=== PATIENT | female | born 1995 | race Caucasian/White ===

== ENCOUNTER 2018-11-08 11:29 | Day surgery (SDC) | payer OTHER, SELFPAY ==
[2018-11-06 10:53] LABS: Hematocrit 39.9 % (37-47); Mean Corp Hgb Conc 35.1 g/gl (32-36); Mean Corpuscular Hgb 30.9 pg (27.0-32.0); Mean Corpuscular Volume 88.1 fL (81-99); Platelet Count 209 K/mm3 (150-450); RBC Distribution Width CV 12.9 % (11.6-14.6); RBC Distribution Width SD 39.8 fl (35.1-43.9); Red Blood Count 4.53 M/mm3 (4.2-5.4); White Blood Count 6.1 K/mm3 (4.4-11.0)
[2018-11-06 10:55] LABS: Scan Indicated on CBC? Y/N NO
[2018-11-06 11:02] LABS: Prothrombin Time (Protime)PT. 13.4 SECONDS (11.7-14.9)
[2018-11-06 11:03] LABS: Partial Thromboplast Time 30.6 Seconds (24.1-36.2)
[2018-11-08] VITALS (7 sets, daily range): BP systolic 102–127; BP diastolic 55–74; PULSE 53–87; RESP 18; TEMP 36.4–36.9; O2SAT 96–100; BMI 29.8
--- NOTE | 2018-11-08 | POC_PTH ---
PATIENT: JJ MORA LOC: [facility] [place]#:[id number] AGE/SX: 23/F ROOM: RE11/08/[address]: Dr. Miles Guerrero MD : [id number] BED: DIS: 11/08/2018 SPEC #: [id number] RECD: 11/08/18 15:23 STATUS: LOLA EZRA #: [id number] MOIZ: 11/08/18 00:[address]: Miles Guerrero DEPT: SURGICAL PATHOLOGY RECD BY: Sridhar Everett ENTERED: 11/08/18 15:23 SP TYPE: PROD CONC OTHR DR: BAUDILIO Shannon Tissues: Product of conception, NOS Procedures: Surgery Specimen Level IV HEADER OPERATION: Dilation and curettage, suction PRE-OP DIAGNOSIS: Missed 11 weeks TISSUE SUBMITTED: Products of conception MICROSCOPIC DIAGNOSIS Endometrium, curettage: Chorionic villi, decidualized stroma and trophoblastic cells consistent with products of conception. See comment. AM:yaz 11/09/18 COMMENT The villi contain hydropic change. Partial molar change cannot be excluded. Clinical correlation is suggested. Case has been reviewed in consultation with Dr. Masterson who concurs with the above diagnosis. IDC:CE MICROSCOPIC DESCRIPTION Slides are reviewed. GROSS DESCRIPTION Received in fixative is one container labeled with the patient's name and designated products of conception. The specimen consists of multiple irregular fragments of red-sanchez soft tissue that in aggregate measure 9 x 8 x 1 cm. parts are not grossly recognized. Equipment Validation Engineer portions are submitted in one cassette. / AM:yaz 11/08/18 TC:5 CPT: 51300
--- NOTE | 2018-11-08 12:11 | DCINST_ITS ---
You will use the following diet at home:: No restrictions, Regular Discharge Activity: Return to Normal Activity, May Drive, May not drive while taking narcotic pain medications., May Shower Return to work on:: 11/11/18 May resume sexual activity in: 3 weeks Call your doctor if your incision/area has: Sudden Increased Bleeding, Foul Smelling Discharge Call your doctor if you observe: Fever of 101 or Higher, Inability to urinate, Inability to have a bowel movement, Using more than one pad per hour, Shortness of breath, Chest pain, Calf discomfort, Uncontrolled pain Cleanse incision/area with: Soap & Water Allergies/Adverse Reactions: Allergies No Known Allergies Allergy (Verified 11/05/18 08:17) Medications to take at Discharge Ibuprofen 600 mg PO 4X/DAY #30 tab 11/08/18 Oxycodone [Oxyir] 5 mg PO Q4H PRN PRN 7 Days #10 tab 11/08/18 The following prescriptions were given: Oxycodone [Oxyir] 5 mg PO Q4H PRN PRN 7 Days #10 tab PRN Reason: Severe Pain (6-07/21) Ibuprofen 600 mg PO 4X/DAY #30 tab Primary Care Physician: Kimberley Gregg NP-C [Primary Care Provider] - Test Results: Test results from this visit will be discussed in further detail at your follow- up appointment, if applicable. Please Follow Up With: Miles Guerrero MD When: 2 weeks Proposed Discharge Date: 11/08/18
--- NOTE | 2018-11-08 12:55 | PCM.OPRPT ---
Problem List (1) Missed with demise before 20 completed weeks of gestation Status: Acute Report of Operation Date of Procedure: 11/08/18 Pre-Operative Diagnosis: Missed Ab Post-Operative Diagnosis: Same Surgery/Procedure Performed:: Suction Dilation and Curettage Description of Surgical Findings:: Uterus 8 weeks size. Normal appearing cervix. Products of conception appropriate for previous US findings. magnesium mill operator: None Type of Anesthesia:: MAC Anesthesiologist: Abhishek Leon Special Medications: none Specimen's removed: Products of Conception Drains: none Estimated Blood Loss (mL): 20cc Fluids Replaced: 500cc LR Description of Procedure: Jarrett was taken tot he OR with IV running. She was given two grams of Cefotetan prior to the surgery for prophylaxis. Anesthesia was introduced without complication. She was prepped and draped in the dorsal lithotomy position. A red rubber catheter was used to drain the bladder. A weighted speculum was placed in the posterior vagina. The cervix was grasped anteriorly with a single toothed tenaculum. The cervix was then serially dilated. A #8 suction curette was then placed and suctioned applied. The suction curette was then removed and a sharp curettage was performed to a gritty texture throughout. The suction curette was replaced and the remaining products of conception obtained. All instruments were then removed from the vagina. Anesthesia was reversed. She was taken to the recovery room in stable condition. Sponge, instrument counts were correct. She was given Rhogam prior to discharge from the recovery room. Grafts/Implants Used: none - Complications none - Admit VTE Documentation VTE Present on Admission: No VTE Mechan Device Prophylaxis: SCD's VTE Pharm Prophylaxis ordered?: No
--- NOTE | 2018-11-08 13:01 | OP.PCM_ITS ---
Problem List (1) Missed with demise before 20 completed weeks of gestation Status: Acute Report of Operation Date of Procedure: 11/08/18 Pre-Operative Diagnosis: Missed Ab Post-Operative Diagnosis: Same Surgery/Procedure Performed:: Suction Dilation and Curettage Description of Surgical Findings:: Uterus 8 weeks size. Normal appearing cervix. Products of conception appr opriate for previous US findings. service desk agent: None Type of Anesthesia:: MAC Anesthesiologist: Abhishek Leon Special Medications: none Specimen's removed: Products of Conception Drains: none Estimated Blood Loss (mL): 20cc Fluids Replaced: 500cc LR Description of Procedure: Jarrett was taken tot he OR with IV running. She was given two grams of Cefotetan prior to the surgery for prophylaxis. Anesthesia was introduced without complication. She was prepped and draped in the dorsal lithotomy position. A red rubber catheter was used to drain the bladder. A weighted speculum was placed in the posterior vagina. The cervix was grasped anteriorly with a single toothed tenaculum. The cervix was then serially dilated. A #8 suction curette was then placed and suctioned applied. The suction curette was then removed and a sharp curettage was performed to a gritty texture throughout. The suction curette was replaced and the remaining products of conception obtained. All instruments were then removed from the vagina. Anesthesia was reversed. She was taken to the recovery room in stable condition. Sponge, instrument counts were correct. She was given Rhogam prior to discharge from the recovery room. Grafts/Implants Used: none - Complications none - Admit VTE Documentation VTE Present on Admission: No VTE Mechan Device Prophylaxis: SCD's VTE Pharm Prophylaxis ordered?: No
== END 2018-11-08 16:08 | disposition home or self-care (01) ==
LOC: SDC 11:32 → AC 11:33
PROVIDERS: Family Provider Nurse Practitioner Family; PCP Nurse Practitioner Family; Referring Provider Obstetrics & Gynecology; Visit Provider Obstetrics & Gynecology
PROC: (CPT 59820; principal; 2018-11-08 12:45)
DX: O02.1 Missed abortion (principal)
CPT/HCPCS: 01965; 59820; 36415; 85027; 85610; 85730; 86850; 86900; 88305; 90384; J7120; J2405; J2790

== ENCOUNTER → 2018-11-22 10:35 | Outpatient (CLI) | payer OTHER, SELFPAY ==
[2018-11-08 11:48] VITALS: BMI 29.8
[2018-11-22 11:30] LABS: hCG Titer Quant., Serum 51 mIU/mL (<9 non-preg)
== END ==
PROVIDERS: Family Provider Nurse Practitioner Family; PCP Nurse Practitioner Family; Visit Provider Obstetrics & Gynecology
DX: O02.0 Blighted ovum and nonhydatidiform mole (principal); Z3A.00 Weeks of gestation of pregnancy not specified
CPT/HCPCS: 36415; 84702

== ENCOUNTER → 2018-11-29 10:52 | Outpatient (CLI) | payer OTHER, SELFPAY ==
[2018-11-08 11:48] VITALS: BMI 29.8
[2018-11-29 12:54] LABS: hCG Titer Quant., Serum 14 mIU/mL (<9 non-preg)
== END ==
PROVIDERS: Family Provider Nurse Practitioner Family; PCP Nurse Practitioner Family; Visit Provider Obstetrics & Gynecology
DX: O02.0 Blighted ovum and nonhydatidiform mole (principal); Z3A.00 Weeks of gestation of pregnancy not specified
CPT/HCPCS: 36415; 84702

== ENCOUNTER → 2018-12-06 11:16 | Outpatient (CLI) | payer OTHER, SELFPAY ==
[2018-11-08 11:48] VITALS: BMI 29.8
[2018-12-06 13:50] LABS: hCG Titer Quant., Serum 6 mIU/mL (<9 non-preg)
== END ==
PROVIDERS: Visit Provider Obstetrics & Gynecology
DX: O02.0 Blighted ovum and nonhydatidiform mole (principal)
CPT/HCPCS: 36415; 84702

== ENCOUNTER → 2019-11-02 17:18 | Outpatient (CLI) | payer OTHER, SELFPAY ==
[2018-11-08 11:48] VITALS: BMI 29.8
[2019-11-02 20:43] LABS: Chlamydia Trachomatis by PCR Negative (Negative); Neisserai gonorrhoeae by PCR Negative (Negative); Probe Check PASS; Sample Adequacy Control PASS; Specimen Processing Control PASS
== END ==
PROVIDERS: Visit Provider Advanced Practice Midwife
DX: Z11.3 Encounter for screening for infections with a predominantly sexual mode of transmission (principal)
CPT/HCPCS: 87491; 87591

== ENCOUNTER → 2019-11-10 15:37 | Outpatient (CLI) | payer OTHER, SELFPAY ==
[2018-11-08 11:48] VITALS: BMI 29.8
[2019-11-10 16:57] LABS: Absolute Lymphocyte Count 2.04 X10^3/uL (0.83-4.51); Absolute Neutrophil Count 8.8 X10^3/uL (2.0-7.7); Basophil# 0.03 X10^3/uL; Basophil% 0.3 % (0-1); Eosinophil# 0.08 X10^3/uL; Eosinophils% 0.7 % (0-5); Hematocrit 42.5 % (37-47); Hemoglobin 14.7 g/dL (12.0-15.0); Lymphocyte # 2.04 X10^3/ul (4.0); Lymphocyte % 17.5 % (19-41); Mean Corp Hgb Conc 34.6 g/dL (32-36); Mean Corpuscular Hgb 30.6 pg (27.0-32.0); Mean Corpuscular Volume 88.4 fL (81-99); Mean Platelet Vol. 9.8 fl (6.2-12.0); Monocyte# 0.63 X10^3/uL; Monocyte% 5.4 % (0-10); NRBC Flagged by Analyzer 0 % (0-5); Neutrophil # 8.82 X10^3/uL (2.7-7.7); Neutrophil % 75.8 % (47-70); Platelet Count 218 K/mm3 (150-450); Red Blood Count 4.81 M/mm3 (4.2-5.4); White Blood Count 11.6 K/mm3 (4.4-11.0)
[2019-11-10 17:05] LABS: Color, Urine Straw (Yellow); Glucose, Dipstick Normal (Normal); Ketone-Dipstick Negative (Negative); Leukocyte Esterase-Dipstick Negative /ul (Negative); Nitrite-Dipstick Negative (Negative); Occult Blood-Urine Negative /ul (Negative); Protein-Dipstick Negative (Negative); Urine Bilirubin Dipstick Negative (Negative); Urine Clarity Clear (Clear); Urine Urobilinogen Normal (Normal)
[2019-11-10 17:19] LABS: Amphetamine Urine VISTA NEGATIVE (<1000 ng/mL); Barbiturate Urine VISTA NEGATIVE (< 200 ng/mL); Benzodiazepine Urine VISTA NEGATIVE (< 200 ng/mL); Cocaine Urine VISTA NEGATIVE (< 300 ng/mL); Ecstacy Urine VISTA NEGATIVE (< 500 ng/mL); Methadone Urine VISTA NEGATIVE (< 300 ng/mL); PCP Urine VISTA NEGATIVE (< 25 ng/mL); THC Urine VISTA NEGATIVE (< 50 ng/mL); Vista UDS pH Range 6
[2019-11-10 17:43] LABS: Thyroid Stim Hormone (TSH) 0.92 uIU/mL (0.358-3.74)
[2019-11-11 10:32] LABS: HIV - WCH Non-Reactive (Nonreactive); Hepatitis B Surface Antigen Non-Reactive (Nonreactive); Hepatitis C Antibody Non-Reactive (Nonreactive); Rubella IgG 16.3 IU/mL
[2019-11-17 03:50] LABS: Prenatal RPR NONREACTIVE (NONREACTIVE)
== END ==
PROVIDERS: Visit Provider Obstetrics & Gynecology
DX: Z34.81 Encounter for supervision of other normal pregnancy, first trimester (principal)
CPT/HCPCS: 36415; 80307; 81002; 84443; 85025; 86703; 86762; 86803; 87340

== ENCOUNTER → 2020-03-07 09:16 | Outpatient (CLI) | payer OTHER, SELFPAY ==
[2018-11-08 11:48] VITALS: BMI 29.8
[2020-03-07 09:35] LABS: Hematocrit 34.6 % (37-47); Hemoglobin 11.6 g/dL (12.0-15.0); Mean Corp Hgb Conc 33.5 g/dL (32-36); Mean Corpuscular Hgb 31.4 pg (27.0-32.0); Mean Corpuscular Volume 93.8 fL (81-99); Mean Platelet Vol. 9.6 fl (6.2-12.0); Platelet Count 234 K/mm3 (150-450); RBC Distribution Width CV 13.1 % (11.6-14.6); RBC Distribution Width SD 44.4 fl (35.1-43.9); Red Blood Count 3.69 M/mm3 (4.2-5.4); White Blood Count 12.4 K/mm3 (4.4-11.0)
[2020-03-07 09:37] LABS: Glucose Challenge Gest 1H 50g 82 mg/dL (70-140)
== END ==
PROVIDERS: Visit Provider Obstetrics & Gynecology
DX: Z34.83 Encounter for supervision of other normal pregnancy, third trimester (principal)
CPT/HCPCS: 36415; 82950; 85027; 86850

== ENCOUNTER → 2020-04-25 11:52 | Outpatient (CLI) | payer OTHER, SELFPAY ==
[2018-11-08 11:48] VITALS: BMI 29.8
== END ==
PROVIDERS: Visit Provider Obstetrics & Gynecology
DX: Z36.85 Encounter for antenatal screening for Streptococcus B (principal)
CPT/HCPCS: 87081

== ENCOUNTER 2020-05-25 19:10 | Inpatient (IN) | payer OTHER, SELFPAY ==
[2018-11-08 11:48] VITALS: BMI 29.8
[2020-05-25] VITALS (8 sets, daily range): BP systolic 132–137; BP diastolic 67–100; PULSE 79–129; TEMP 36.5–36.6; O2SAT 98–99; BMI 42.5
[2020-05-25] MEDS: Lactated Ringers 1,000 ML 50 ML IV (19:35)
--- NOTE | 2020-05-25 19:50 | PCM.HP.OB ---
- Problem List (1) 40 weeks gestation of Status: Acute History Date of Admission: 05/25/20 Final FÁTIMA: 05/21/20 Final FÁTIMA Source: US <20 weeks Gestational age: 40 Weeks and 5 Days History of this : This is a 25 year-old, G [2], P [0], at 40 weeks gestational age. Allergies No Known Allergies Allergy (Verified 11/05/18 08:17) Home Medications: Home Medications Vits [Prenatabs FA] 1 tab PO DAILY 05/25/20 Smoking Status: Never smoker Alcohol: None Number of Fetus(es): 1 NST - FHR Rate Baby A Baseline: 135 Variability:: Moderate Accelerations:: 15 x 15 Decelerations:: None NST Reactive:: Yes FHR Category:: Category I Uterine Activity:: quiet History Past Pregnancies: Past Pregnancies PRIOR DELIVERY HISTORY DEL DATE GEST LAB WT LB WT OZ TYPE ANES LABOR TX Oct 19 8 0 0 0 Molar General No Labs: Mom's Labs & Results 05/25/20 05/25/20 05/25/20 19:35 19:35 19:35 WBC 14.0 H RBC 3.78 L Hgb 11.4 L Hct 33.9 L MCV 89.7 MCH 30.2 MCHC 33.6 RDW Std Deviation 47.5 H RDW Coeff of Adela 14.6 Plt Count 237 MPV 10.6 Immature Gran % (Auto) 0.700 Neut % (Auto) 77.7 H Lymph % (Auto) 14.2 L [place] % (Auto) 6.6 Eos % (Auto) 0.7 Baso % (Auto) 0.1 Absolute Neuts (auto) 10.9 H Absolute Lymphs (auto) 1.99 Nucleated RBC % 0 PT 11.9 INR 0.9 APTT 27.5 Creatinine Estim Creat Clear Calc Est GFR (MDRD) Af Amer Est GFR (MDRD) Non-Af Uric Acid AST ALT Blood Type O NEGATIVE Antibody Screen NEGATIVE 05/25/20 19:35 WBC RBC Hgb Hct MCV MCH MCHC RDW Std Deviation RDW Coeff of Adela Plt Count MPV Immature Gran % (Auto) Neut % (Auto) Lymph % (Auto) [place] % (Auto) Eos % (Auto) Baso % (Auto) Absolute Neuts (auto) Absolute Lymphs (auto) Nucleated RBC % PT INR APTT Creatinine 0.81 Estim Creat Clear Calc 108.97 Est GFR (MDRD) Af Amer 113 Est GFR (MDRD) Non-Af 93 Uric Acid 5.1 AST 18 ALT 19 Blood Type Antibody Screen Course Did the patient receive Yes care? Labs Blood Type: O RH: NEGATIVE RPR/VDRL/Syphilis Nonreactive Rubella status Immune HbSAg Negative Date Done: 11/10/19 Chlamydia Negative Gonorrhea Negative HIV/AIDS Non-Reactive Group B Strep: Negative Current Obstetrical History Gestational Diabetes No Incompetent Cervix No Infertility No IUGR No Macrosomia No Hypertension/Pre-eclampsia No Placenta Previa/Abruption No PTL/PROM No Uterine anomaly No Oligohydramnios No Polyhydramnios No Multiple gestation No Past Medical History Asthma Yes: exercise induced asthma Diabetes No Hypertension No Heart disease No Mitral valve prolapse No Neurologic/Seizure disorder/ No Migraines Kidney disease No Liver disease No Varicosities No Clotting disorders/Hx of DVT No Thyroid Dysfunction No Other medical diseases No Psychiatric disorders No Major trauma No Abnormal PAP smear No Sleep apnea No Mammogram in the last 2 years No Social History Marital Status: SINGLE Alleged father Khloe Atwood Hx Smoking No Smoking Status Never smoker Expected Infant Delivery Method: Spontaneous Vaginal Number of Visits: 12 Review of Systems Constitutional: Denies: Chills, Fever, Weight Change HEENT: Denies: Head Aches, Sinus Congestion, Sinus Drainage Cardiovascular: Denies: Chest Pain, Palpitations Respiratory: Denies: Cough, Shortness of breath at rest, Sputum production Gastrointestinal: Denies: Abdominal Pain, Nausea, Vomiting Genitourinary: Denies: Dysuria Musculoskeletal: Denies: Joint Pain, Joint Tenderness Skin: Denies: Rash, Wounds Neurological: Denies: Numbness, Tingling, Focal weakness Psychiatric: Reports: Anxiety. Denies: Depression, Homicidal Ideations, Suicidal Ideations Hematologic/ Lymphatic: Denies: Easy Bruising, Easy Bleeding Physical Exam Vitals: Vital Signs Temp Pulse BP Pulse Ox 98.4 F 90 135/74 H 99 05/26/20 09:56 05/26/20 09:56 05/26/20 09:56 05/26/20 09:56 General: Alert, Oriented x3, No apparent distress HEENT: Atraumatic, Normocephalic. Negative for: Thyromegaly, Lymphadenopathy Cardiovascular: Regular rate, Regular Rhythm Lungs: Clear to auscultation Abdomen: Bowel Sounds Present, Gravid Neurological: Deep Tendon Reflexes 2+/4 and Symmetrical, Neuro grossly intact MANAGER PET: Normal external genitalia. Negative for: Vulvar lesions Estimated gestational size: Appropriate for gestational size Presentation: Cephalic Cervix Dilation (cm): 1 Station: -3 Effacement (%): 20 Assessment/Plan All Active Problems Missed with demise before 20 completed weeks of gestation (Acute) 40 weeks gestation of (Acute) A/P: This is a 25 year-old, G [2], P [0], at 40 weeks gestational age. IOL for postdates with BMI >40 SVE 10/31/-3 posterior moderate NST Category I Plan Cytotec IOL Expect
[2020-05-25 19:54] LABS: Absolute Lymphocyte Count 1.99 X10^3/uL (0.83-4.51); Absolute Neutrophil Count 10.9 X10^3/uL (2.0-7.7); Basophil# 0.02 X10^3/uL; Basophil% 0.1 % (0-1); Eosinophils% 0.7 % (0-5); Hematocrit 33.9 % (37-47); Hemoglobin 11.4 g/dL (12.0-15.0); Lymphocyte # 1.99 X10^3/ul (4.0); Lymphocyte % 14.2 % (19-41); Mean Corp Hgb Conc 33.6 g/dL (32-36); Mean Corpuscular Hgb 30.2 pg (27.0-32.0); Mean Corpuscular Volume 89.7 fL (81-99); Mean Platelet Vol. 10.6 fl (6.2-12.0); Monocyte# 0.93 X10^3/uL; Monocyte% 6.6 % (0-10); NRBC Flagged by Analyzer 0 % (0-5); Neutrophil # 10.89 X10^3/uL (2.7-7.7); Neutrophil % 77.7 % (47-70); Platelet Count 237 K/mm3 (150-450); RBC Distribution Width CV 14.6 % (11.6-14.6); RBC Distribution Width SD 47.5 fl (35.1-43.9); Red Blood Count 3.78 M/mm3 (4.2-5.4)
[2020-05-25] MEDS: miSOPROStol 25 MCG TABLET VAGINAL (20:21)
[2020-05-25 20:33] LABS: International Normalized Ratio 0.9; Partial Thromboplast Time 27.5 Seconds (24.1-36.2); Prothrombin Time (Protime)PT. 11.9 SECONDS (11.7-14.9)
[2020-05-25 20:37] LABS: AST(SGOT) 18 U/L (15-37); Alanine Aminotransfer ALT/SGPT 19 U/L (13-56); Creatinine, Serum 0.81 mg/dL (0.55-1.02); EST Glomerular Filtration Rate 93 mL/min (>60); Est Glom Filt Rate - Afr Amer 113 mL/min (>60); Estimated Creatinine Clearance 108.97 ml/min; Uric Acid 5.1 mg/dL (2.6-6.0)
[2020-05-26] VITALS (56 sets, daily range): BP systolic 111–170; BP diastolic 57–93; PULSE 70–200; TEMP 36.3–37.7; O2SAT 82–100
[2020-05-26] MEDS: miSOPROStol 50 MCG TABLET VAGINAL (00:25)
[2020-05-26] MEDS: 0.9% Saline Lock 10 ML Syringe IV (04:15)
[2020-05-26] MEDS: Lactated Ringers 500 ML 999 ML IV ×2 (04:53→19:57)
--- NOTE | 2020-05-26 09:05 | PCM.PN.OB ---
Patient Problems: Active and Suspected Problems 40 weeks gestation of (Acute) Subjective: Feeling anxious and scared. Having period like cramps on and off, but denies pain. Objective: VSS. Uterine irritability. NST Category I. SVE 1.5/70/-2 soft anterior. - Physical Exam Vitals/I&O's: Vital Signs Temp Pulse BP Pulse Ox 98.4 F 90 135/74 H 99 05/26/20 09:56 05/26/20 09:56 05/26/20 09:56 05/26/20 09:56 Weight: 127.006 kg Body Mass Index (BMI) 42.5 Intake and Output for Last 24 Hours 05/24/20 05/25/20 05/26/20 23:59 23:59 23:59 Intake Total 4.17 / 4.17 1530.83 / 1530.83 Output Total 400 / 400 800 / 800 Balance -395.83 / -395.83 730.83 / 730.83 General: Alert, Oriented x3, Cooperative HEENT: Atraumatic, PERRLA, EOMI, Normocephalic Neck: Supple, No JVD, Negative Carotid Bruits Lungs: Clear to auscultation, Normal air movement Cardiovascular: Regular rate, No murmurs Abdomen: Bowel Sounds Present, Soft, Non Tender Extremities: No edema, Capillary Refill Less than 3 Seconds Skin: No rashes, No breakdown Musculoskeletal: No Tenderness to Palpation of Joints or Extremities Neurological: Cranial nerves II-XII grossly intact Psych/Mental Status: Normal Affect, Appropriate, Anxious Laboratory Results 05/25/20 19:35: WBC 14.0 H, RBC 3.78 L, Hgb 11.4 L, Hct 33.9 L, MCV 89.7, MCH 30.2, MCHC 33.6, RDW Std Deviation 47.5 H, RDW Coeff of Adela 14.6, Plt Count 237, MPV 10.6, Immature Gran % (Auto) 0.700, Neut % (Auto) 77.7 H, Lymph % (Auto) 14.2 L, [place] % (Auto) 6.6, Eos % (Auto) 0.7, Baso % (Auto) 0.1, Absolute Neuts (auto) 10.9 H, Absolute Lymphs (auto) 1.99, Nucleated RBC % 0 05/25/20 19:35: Blood Type O NEGATIVE, Antibody Screen NEGATIVE 05/25/20 19:35: PT 11.9, INR 0.9, APTT 27.5 05/25/20 19:35: Creatinine 0.81, Estim Creat Clear Calc 108.97, Est GFR (MDRD) Af Amer 113, Est GFR (MDRD) Non-Af 93, Uric Acid 5.1, AST 18, ALT 19 Current Medications Acetaminophen (Tylenol) 325 - 650 mg PO Q4H PRN PRN PRN Reason: Pain Score 1-3/10 Al Hydroxide/Mg Hydroxide (Mylanta Ii) 15 - 30 ml PO Q4H PRN PRN PRN Reason: INDIGESTION Citric Acid/Sodium Citrate (Bicitra) 30 ml PO X1 PRN PRN Reason: Section Fentanyl Citrate (Sublimaze (100mcg Ampule)) 25 - 50 mcg IV Q2H PRN PRN PRN Reason: Pain Score 4-10/10 Lactated Ringer's () 500 mls @ 999 mls/hr IV .Q31M PRN PRN Reason: Epidural Lactated Ringer's () 500 mls @ 999 mls/hr IV .Q31M PRN PRN Reason: Corrective Measures Last Infusion: 05/26/20 05:24 Dose: Infused Documented by: Lactated Ringer's () 1,000 mls @ 50 mls/hr IV .Q20H [facility] Last Infusion: 05/26/20 05:24 Dose: 50 mls/hr Documented by: Oxytocin/Sodium Chloride () 30 units in 500 mls @ 2 mls/hr IV .Q250H [facility] Last Admin: 05/26/20 09:59 Dose: 2 mls/hr Documented by: Ondansetron HCl (Zofran) 4 mg IV Q4H PRN PRN PRN Reason: NAUSEA Prochlorperazine Edisylate (Compazine Iv) 10 mg IV Q6H PRN PRN PRN Reason: NAUSEA Sodium Chloride () 10 - 40 ml IV X1 PRN PRN Reason: SALINE FLUSH Last Admin: 05/26/20 04:15 Dose: 10 ml Documented by: Medical Necessity - Tobacco Use Smoking Status: Never smoker Assessment/Plan All Active Problems Missed with demise before 20 completed weeks of gestation (Acute) 40 weeks gestation of (Acute) A/P: 0630 Cytotec held d/t low intensity, high frequency contraction pattern SVE 1.5/70/-2 soft anterior Unable to AROM d/t maternal discomfort and anxiety Pitocin to start at 2u, to be increased 2u/1H Will recheck SVE within 4 hours to AROM Unsure on pain management, educated on IV Fentanyl and Epidural Plans in place for a
[2020-05-26] MEDS: Oxytocin 30 units/NS 500 ml 30 UNITS/500 ML IV.SOLN IV (09:59)
--- NOTE | 2020-05-26 15:40 | PCM.PN.OB ---
Patient Problems: Active and Suspected Problems 40 weeks gestation of (Acute) Subjective: Reporting mild cramping on and off. Still having pain in the hips and back, but wants to take a warm shower. Objective: VSS. SVE 1.5/75/-1 per golf player assistant. Ultrasound done to confirm cephalic presentation. UC 1-5m irregular. FHR baseline 120, +accels, -decels, moderate variability. - Physical Exam Vitals/I&O's: Vital Signs Temp Pulse BP Pulse Ox 98.7 F 97 130/60 H 100 05/26/20 20:54 05/26/20 21:44 05/26/20 21:44 05/26/20 21:44 Weight: 127.006 kg Body Mass Index (BMI) 42.5 Intake and Output for Last 24 Hours 05/24/20 05/25/20 05/26/20 23:59 23:59 23:59 Intake Total 4.17 / 4.17 3296.69 / 3296.69 Output Total 400 / 400 1400 / 1400 Balance -395.83 / -395.83 1896.69 / 1896.69 General: Alert, Oriented x3, Cooperative HEENT: Atraumatic, PERRLA, EOMI, Normocephalic Neck: Supple, No JVD, Negative Carotid Bruits Lungs: Clear to auscultation, Normal air movement Cardiovascular: Regular rate, No murmurs Abdomen: Bowel Sounds Present, Soft, Non Tender Extremities: No edema, Capillary Refill Less than 3 Seconds Skin: No rashes, No breakdown Musculoskeletal: No Tenderness to Palpation of Joints or Extremities Neurological: Cranial nerves II-XII grossly intact Psych/Mental Status: Normal Affect, Appropriate Current Medications Acetaminophen (Tylenol) 325 - 650 mg PO Q4H PRN PRN PRN Reason: Pain Score 1-3/10 Al Hydroxide/Mg Hydroxide (Mylanta Ii) 15 - 30 ml PO Q4H PRN PRN PRN Reason: INDIGESTION Citric Acid/Sodium Citrate (Bicitra) 30 ml PO X1 PRN PRN Reason: Section Ephedrine Sulfate () 10 mg IV Q10M PRN PRN Reason: hypotension Ephedrine Sulfate () 10 mg IM Q30M PRN PRN Reason: hypotension Fentanyl Citrate (Sublimaze (100mcg Ampule)) 25 - 50 mcg IV Q2H PRN PRN PRN Reason: Pain Score 4-10/10 Fentanyl/Bupivacaine/Sodium Chlor () 0 ml EPIDURAL UD [facility]; Protocol Lactated Ringer's () 500 mls @ 999 mls/hr IV .Q31M PRN PRN Reason: Epidural Last Infusion: 05/26/20 20:28 Dose: Infused Documented by: Lactated Ringer's () 500 mls @ 999 mls/hr IV .Q31M PRN PRN Reason: Corrective Measures Last Infusion: 05/26/20 05:24 Dose: Infused Documented by: Lactated Ringer's () 1,000 mls @ 50 mls/hr IV .Q20H [facility] Last Infusion: 05/26/20 20:28 Dose: 200 mls/hr Documented by: Oxytocin/Sodium Chloride () 30 units in 500 mls @ 2 mls/hr IV .Q250H [facility] Last Infusion: 05/26/20 17:30 Dose: 12 mls/hr Documented by: Naloxone HCl 4 mg/ Dextrose 504 mls @ 0 mls/hr IV .Q0M PRN; Protocol PRN Reason: To maintain Resp. rate >10 Nalbuphine HCl (Nubain) 5 mg IV Q3H PRN PRN PRN Reason: ITCHING Naloxone HCl (Narcan) 0.02 mg IV Q1M PRN PRN Reason: RR< 10 AND PT UNRESPONSIVE Ondansetron HCl (Zofran) 4 mg IV Q4H PRN PRN PRN Reason: NAUSEA Prochlorperazine Edisylate (Compazine Iv) 10 mg IV Q6H PRN PRN PRN Reason: NAUSEA Sodium Chloride () 10 - 40 ml IV X1 PRN PRN Reason: SALINE FLUSH Last Admin: 05/26/20 04:15 Dose: 10 ml Documented by: Medical Necessity - Tobacco Use Smoking Status: Never smoker Assessment/Plan All Active Problems Missed with demise before 20 completed weeks of gestation (Acute) 40 weeks gestation of (Acute) A/P: US confirms cephalic presentation SVE slightly changed at 1.5/75/-1 Wants to shower for pain management Epidural education given for relaxation to let hips relax Will discuss POC with attending Dr. Goncalves
[2020-05-26] MEDS: fentaNYL-bupivacaine (epidural) 100 ML BAG EPIDURAL (21:24)
--- NOTE | 2020-05-26 21:45 | PCM.PN.OB ---
Patient Problems: Active and Suspected Problems 40 weeks gestation of (Acute) Subjective: Comfortable with epidural now, but very shaky and nervous. Objective: VSS. SVE unchanged at 1.5/75/-1. AROM with light meconium stained fluid. Unable to trace UC, but palpating mild Q1-4m. NST Category I with FHR baseline 130, +accels, -decels, moderate variability. - Physical Exam Vitals/I&O's: Vital Signs Temp Pulse BP Pulse Ox 98.7 F 97 130/60 H 100 05/26/20 20:54 05/26/20 21:44 05/26/20 21:44 05/26/20 21:44 Weight: 127.006 kg Body Mass Index (BMI) 42.5 Intake and Output for Last 24 Hours 05/24/20 05/25/20 05/26/20 23:59 23:59 23:59 Intake Total 4.17 / 4.17 3296.69 / 3296.69 Output Total 400 / 400 1400 / 1400 Balance -395.83 / -395.83 1896.69 / 1896.69 General: Alert, Oriented x3, Cooperative HEENT: Atraumatic, PERRLA, EOMI, Normocephalic Neck: Supple, No JVD, Negative Carotid Bruits Lungs: Clear to auscultation, Normal air movement Cardiovascular: Regular rate, No murmurs Abdomen: Bowel Sounds Present, Soft, Non Tender Extremities: No edema, Capillary Refill Less than 3 Seconds Skin: No rashes, No breakdown Musculoskeletal: No Tenderness to Palpation of Joints or Extremities Neurological: Cranial nerves II-XII grossly intact Psych/Mental Status: Normal Affect, Appropriate, Anxious Current Medications Acetaminophen (Tylenol) 325 - 650 mg PO Q4H PRN PRN PRN Reason: Pain Score 1-3/10 Al Hydroxide/Mg Hydroxide (Mylanta Ii) 15 - 30 ml PO Q4H PRN PRN PRN Reason: INDIGESTION Citric Acid/Sodium Citrate (Bicitra) 30 ml PO X1 PRN PRN Reason: Section Ephedrine Sulfate () 10 mg IV Q10M PRN PRN Reason: hypotension Ephedrine Sulfate () 10 mg IM Q30M PRN PRN Reason: hypotension Fentanyl Citrate (Sublimaze (100mcg Ampule)) 25 - 50 mcg IV Q2H PRN PRN PRN Reason: Pain Score 4-10/10 Fentanyl/Bupivacaine/Sodium Chlor () 0 ml EPIDURAL UD [facility]; Protocol Lactated Ringer's () 500 mls @ 999 mls/hr IV .Q31M PRN PRN Reason: Epidural Last Infusion: 05/26/20 20:28 Dose: Infused Documented by: Lactated Ringer's () 500 mls @ 999 mls/hr IV .Q31M PRN PRN Reason: Corrective Measures Last Infusion: 05/26/20 05:24 Dose: Infused Documented by: Lactated Ringer's () 1,000 mls @ 50 mls/hr IV .Q20H [facility] Last Infusion: 05/26/20 20:28 Dose: 200 mls/hr Documented by: Oxytocin/Sodium Chloride () 30 units in 500 mls @ 2 mls/hr IV .Q250H [facility] Last Infusion: 05/26/20 17:30 Dose: 12 mls/hr Documented by: Naloxone HCl 4 mg/ Dextrose 504 mls @ 0 mls/hr IV .Q0M PRN; Protocol PRN Reason: To maintain Resp. rate >10 Nalbuphine HCl (Nubain) 5 mg IV Q3H PRN PRN PRN Reason: ITCHING Naloxone HCl (Narcan) 0.02 mg IV Q1M PRN PRN Reason: RR< 10 AND PT UNRESPONSIVE Ondansetron HCl (Zofran) 4 mg IV Q4H PRN PRN PRN Reason: NAUSEA Prochlorperazine Edisylate (Compazine Iv) 10 mg IV Q6H PRN PRN PRN Reason: NAUSEA Sodium Chloride () 10 - 40 ml IV X1 PRN PRN Reason: SALINE FLUSH Last Admin: 05/26/20 04:15 Dose: 10 ml Documented by: Medical Necessity - Tobacco Use Smoking Status: Never smoker Assessment/Plan All Active Problems Missed with demise before 20 completed weeks of gestation (Acute) 40 weeks gestation of (Acute) A/P: SVE unchanged 1.5/75/-1, but able to AROM with light meconium stained fluid UC 1.5-4m NST Category I Epidural in place for pain management Plan to recheck SVE in 4 hours. If cervical change to place internal monitors. If no cervical change, to turn off Pitocin x 4 hours and then restart. Dr. Goncalves updated on POC
[2020-05-26] MEDS: Lactated Ringers 1,000 ML 200 ML IV (22:07)
[2020-05-27] VITALS (62 sets, daily range): BP systolic 109–149; BP diastolic 55–89; PULSE 75–202; RESP 18; TEMP 36.7–37.8; O2SAT 83–100
[2020-05-27] MEDS: Lactated Ringers 500 ML 999 ML IV ×2 (01:40→04:03)
[2020-05-27] MEDS: fentaNYL-bupivacaine (epidural) 100 ML BAG EPIDURAL ×2 (02:40→09:23)
[2020-05-27] MEDS: Lactated Ringers 1,000 ML 200 ML IV (02:40)
[2020-05-27] MEDS: Ondansetron 4 MG/2 ML Vial IV (04:11)
[2020-05-27] MEDS: Oxytocin 30 units/NS 500 ml 30 UNITS/500 ML IV.SOLN 334 UNITS IV (07:55)
--- NOTE | 2020-05-27 09:19 | PCM.OPRPT ---
Problem List (1) 40 weeks gestation of Status: Acute Vaginal Delivery Maternal Presentation: Medically Indicated Induction Method of Induction: Cytotec Medical Reason for Induction: Post term Amniotic Membrane Rupture Type: Artificial Amniotic Fluid Description: Moderate meconium Final FÁTIMA: 05/21/20 Final FÁTIMA Source: US <20 weeks Gestational age: 40 Weeks and 6 Days doctor who attended delivery (if requested by OB): Minh Tucker Date of Procedure: 05/27/20 Pre-Operative Diagnosis: IOL Post-Operative Diagnosis: Surgery/ Procedure Performed: Spontaneous Vaginal Delivery Anesthesiologist: Barrett Kwong Type of Anesthesia: Epidural Description of Procedure: Patient was FD at +3 station with spontaneous urge to push. She pushed well over three hours to deliver head in OA to CAMRYN followed spontaneously by body. The was placed on the maternal abdomen and CNM bulb suctioned mouth and nares. he cord was doubly clamped and cut by FOB under CNM supervision at approximately 3 minutes of life. IV Pitocin started per protocol. With gentle traction the placenta remained attached in uterus. Call to Dr. Goncalves and able to allow 2 hours to spontaneously deliver. 2nd degree perineal laceration noted and repaired under epidural anesthesia and 1% local Lidocaine with a 3.0 rapide/double. Apgars 8/9. Sponge and needle counts correct x 2. After two hours, Dr. Goncalves called when placenta fragments started to deliver. With manual exploration, placenta attached at [address] Goncalves to come in to assess. Presentation: Vertex, CAMRYN Placental Delivery Description: Retained - Dr. Goncalves in for removal after 2 hours Cord Vessel Description: 3 Vessels Cord Entanglement: None Drain: Jeronimo to straight drain A gender: Female (1 minute): 8 (5 minute): 9 Episiotomy Description: None Laceration: Perineal Extension/lac, 2nd degree Medications given after delivery: IV Pitocin
--- NOTE | 2020-05-27 09:30 | DCINST_ITS ---
Discharge Diet: No Restrictions Discharge Activity: Return to Normal Activity, May not drive while taking narcotic pain medications., May Shower May resume sexual activity in: 4-6 weeks Additional Activity Instructions:: Nothing in the vagina for 4-6 weeks. You may return to work/school in 6 weeks. Call your doctor if your incision/area has: Continuous Slow Oozing, Sudden Increased Bleeding, Increased Pain/ Swelling, Increased Redness, Foul Smelling Discharge Additional Instructions: If you experience any of the following, contact your healthcare provider. * Bleeding that soaks a pad every hour for 2 hours * Fever 100.4 or higher * Unrelieved incision or abdominal pain * Swelling, redness, discharge or bleeding from your incision or episiotomy site * Your incision begins to separate * Problems urinating (including inability to urinate or burning while urinating). * Visual changes * Severe headache * Flu-like symptoms * Pain or redness in one of both of your breasts * Pain, warmth, tenderness or swelling in your legs, especially the calf area * Frequent nausea and vomiting * Symptoms of depression or anxiety If you experience any of the following, call 911 or go to the nearest Emergency Room. * Chest pain * Problems breathing * Seizure activity * Partial or complete paralysis of a body part, slurred speech, weakness or drooping of the face, or a sudden inability to walk or hold your balance Allergies/Adverse Reactions: Allergies No Known Allergies Allergy (Verified 11/05/18 08:17) Medications to take at Discharge Vits [Prenatabs FA] 1 tab PO DAILY 05/25/20 Please Follow Up With: Fiona Joseph CNM When: Call to make an appointment with your CNM in 2 weeks for a telehealth appt and a 6 week regular appt. Primary Care Physician: Kimberley Gregg NP-C [Primary Care Provider] - Test Results: Test results from this visit will be discussed in further detail at your follow- up appointment, if applicable.
[2020-05-27] MEDS: Methylergonovine 0.2 MG/ML Ampul IM (09:48)
--- NOTE | 2020-05-27 09:54 | OP.PCM_ITS ---
Report of Operation Date of Procedure: 05/27/20 Pre-Operative Diagnosis: Retained Placenta Status Post Spontaneous Vaginal Delivery Post-Operative Diagnosis: Retained Placenta Status Post Spontaneous Vaginal Delivery Surgery/Procedure Performed:: Extraction of Retained Placenta Description of Surgical Findings:: Adherent meconium stained placenta Type of Anesthesia:: Epidural Drains: Jeronimo to straight drain Estimated Blood Loss (mL): 450 cc Description of Procedure: Surgeon: Darren Goncalves MD, FACOG Baby delivered per bunk assembler approximately 3 hours ago and placenta has remained in place. Some large clots noted so I was called for extraction of the placenta. Upon entering the delivery room suite the patient was noted to be the dorsolithotomy position. Minimal vaginal bleeding was noted. Traction on the umbilical cord for approximately 20 to 30 minutes eventually allowed delivery of the adherent placenta. Ultrasound of the uterus after placental delivery revealed the placenta to be completely removed and examination of the placenta showed no evidence of remaining placental in the uterus. Patient had rather brisk bleeding after placental delivery so she was given IM Methergine followed by a bolus of Pitocin. No active bleeding noted after the Methergine. We will continue to monitor and give an extra bag of Pitocin over the next several hours. EBL 450 cc total for delivery and placental removal. - Complications Adherent Placenta
[2020-05-27] MEDS: Oxytocin 30 units/NS 500 ml 30 UNITS/500 ML IV.SOLN 167 UNITS IV (10:07)
[2020-05-27] MEDS: 0.9% Saline Lock 10 ML Syringe IV (13:41)
--- NOTE | 2020-05-27 15:52 | NURSING ---
pt states her legs still feel numb- pt not yet ready to walk
[2020-05-27] MEDS: Ibuprofen 600 MG Tablet PO (17:28)
--- NOTE | 2020-05-27 17:51 | NURSING ---
1630 pt up oob up to br; pt unable to void; pt gait slow but steady; bed changed; pericare demonstrated
[2020-05-28] VITALS (8 sets, daily range): BP systolic 129–134; BP diastolic 63–82; PULSE 107–110; RESP 16–18; TEMP 36.6–36.7; O2SAT 98–99
--- NOTE | 2020-05-28 08:50 | PCM.PN.OB ---
Patient Problems: Active and Suspected Problems 40 weeks gestation of (Acute) Subjective: Doing well and was able to rest overnight. Is with shield and wants to work with today before discharge. Denies pain or heavy bleeding. Ambulating in room, tolerating a regular diet, urinating well and passing flatus. Objective: VSS with BPs WNL. Fundus is firm, midline, u/1. Lochia rubra moderate. - Physical Exam Vitals/I&O's: Vital Signs Temp Pulse Resp BP Pulse Ox 97.9 F 110 H 16 131/66 H 98 05/28/20 04:05 05/28/20 04:05 05/28/20 04:05 05/28/20 04:05 05/28/20 00:04 Oxygen Delivery Method Room Air Weight: 127.006 kg Body Mass Index (BMI) 42.5 Intake and Output for Last 24 Hours 05/26/20 05/27/20 05/28/20 23:59 23:59 23:59 Intake Total 3786.19 / 3786.19 4907.70 / 4907.70 Output Total 1400 / 1400 1600 / 1600 Balance 2386.19 / 2386.19 3307.70 / 3307.70 General: Alert, Oriented x3, Cooperative HEENT: Atraumatic, PERRLA, EOMI, Normocephalic Neck: Supple, No JVD, Negative Carotid Bruits Lungs: Clear to auscultation, Normal air movement Cardiovascular: Regular rate, No murmurs Abdomen: Bowel Sounds Present, Soft, Non Tender Extremities: No edema, Capillary Refill Less than 3 Seconds Skin: No rashes, No breakdown Musculoskeletal: No Tenderness to Palpation of Joints or Extremities Neurological: Cranial nerves II-XII grossly intact Psych/Mental Status: Normal Affect, Appropriate Laboratory Results 05/27/20 11:15: Screen NEGATIVE, Baby's Blood Type O POSITIVE, Baby's CUCA NEGATIVE Current Medications Acetaminophen (Tylenol) 1,000 mg PO Q8H PRN PRN PRN Reason: Pain Score 1-3/10 Bisacodyl (Dulcolax) 10 mg RECTAL UD PRN PRN Reason: If no BM Hydrocortisone (Hytone) 1 applic TOPICAL TID PRN PRN; Protocol PRN Reason: Discomfort Ibuprofen (Motrin) 600 mg PO Q6H PRN PRN PRN Reason: Pain Score 1-3/10 Last Admin: 05/27/20 17:28 Dose: 600 mg Documented by: Methylergonovine Maleate (Methergine) 0.2 mg IM X1 PRN PRN Reason: Excess bleeding/uterine atony Last Admin: 05/27/20 09:48 Dose: 0.2 mg Documented by: Ondansetron HCl (Zofran) 4 mg IV Q4H PRN PRN PRN Reason: Nausea Senna/Docusate Sodium (Senokot-S, Delmy-Colace) 1 - 2 tablet PO DAILY PRN PRN PRN Reason: Constipation Simethicone (Mylicon) 80 mg PO PCHS PRN PRN Reason: Indigestion/Stomach pain Sodium Chloride () 5 - 15 ml IV UD PRN PRN Reason: SALINE FLUSH Last Admin: 05/27/20 13:41 Dose: 10 ml Documented by: Throat Lozenges (Dermoplast (Sp)) 1 applic TOPICAL 4X/DAY CHELLE; Protocol Last Admin: 05/27/20 22:04 Dose: 1 applic Documented by: Medical Necessity - Tobacco Use Smoking Status: Never smoker Assessment/Plan All Active Problems Missed with demise before 20 completed weeks of gestation (Acute) 40 weeks gestation of (Acute) A/P: S/P day #1 mother, will work with before discharge Normal involution and lochia Dyad stable Would like to discharge home today Education on , lochia, signs of PPD and when to call Will f/u with parts data writer in 2 weeks for a telehealth visit and in 6 weeks for routine PP visit
== END 2020-05-28 16:00 | disposition home or self-care (01) | DRG 806 ==
PROVIDERS: Admitting Provider Obstetrics & Gynecology; PCP Nurse Practitioner Family; Referring Provider Obstetrics & Gynecology; Visit Provider Obstetrics & Gynecology
DX: O48.0 Post-term pregnancy (principal); O72.0 Third-stage hemorrhage; O70.1 Second degree perineal laceration during delivery; O77.0 Labor and delivery complicated by meconium in amniotic fluid; O99.52 Diseases of the respiratory system complicating childbirth; J45.909 Unspecified asthma, uncomplicated; Z3A.40 40 weeks gestation of pregnancy; Z37.0 Single live birth
CPT/HCPCS: 59025; 59050; 82565; 84450; 84460; 84550; 85025; 85461; 85610; 85730; 86850; 86900; 86901; 90384; 99218; J7120; A4216; G0378; J2405; J2790

== ENCOUNTER → 2020-07-18 | Outpatient (CLI) | payer OTHER, SELFPAY ==
[2020-05-25 19:26] VITALS: BMI 42.5
[2020-07-20 20:07] LABS: Age Gdln ACOG Testing 21-29 (.)
[2020-07-20 20:35] LABS: HPV Reflexed? NOT INDICATED
== END | disposition home or self-care (01) ==
LOC: LABSPEC 10:02
PROVIDERS: PCP Nurse Practitioner Family; Visit Provider Obstetrics & Gynecology
DX: Z12.4 Encounter for screening for malignant neoplasm of cervix (principal)
CPT/HCPCS: 88175; G0145

== ENCOUNTER → 2021-03-22 | Outpatient (CLI) | payer OTHER, SELFPAY ==
[2020-05-25 19:26] VITALS: BMI 42.5
[2021-03-25 20:07] LABS: Chlamydia By Nucleic Acid AMP Negative (Negative)
[2021-03-25 20:59] LABS: Gonococcus By Nucleic Acid AMP Negative (Negative)
== END | disposition home or self-care (01) ==
LOC: LABSPEC 15:10
PROVIDERS: PCP Nurse Practitioner Family; Visit Provider Obstetrics & Gynecology
DX: Z11.3 Encounter for screening for infections with a predominantly sexual mode of transmission (principal)
CPT/HCPCS: 87491; 87591

== ENCOUNTER → 2021-08-13 | Outpatient (CLI) | payer OTHER, SELFPAY | END | disposition home or self-care (01) | LOC: LABSPEC 08-14 09:24 | PROVIDERS: PCP Nurse Practitioner Family; Visit Provider Obstetrics & Gynecology | DX: Z12.4 Encounter for screening for malignant neoplasm of cervix (principal) | CPT/HCPCS: 88175; G0145 ==

== ENCOUNTER 2021-11-28 14:03 | Outpatient (CLI) | payer OTHER, SELFPAY ==
--- NOTE | 2021-11-28 | CER_PTH ---
PATIENT: JJ MORA [facility] U#:[id number] AGE/SX: 26/F ROOM: RE11/28/[address]: Dr. Darren Goncalvse MD : 1995 BED: DIS: 11/28/2021 SPEC #: [id number] RECD: 11/28/21 15:11 STATUS: LOLA EZRA #: [id number] MOIZ: 11/28/21 00:[address]: Darren Goncalves DEPT: SURGICAL PATHOLOGY RECD BY: Kwesi Guerrero ENTERED: 11/29/21 09:37 SP TYPE: CERV OTHR DR: Kimberley Gregg, HERLINDA-C Tissues: A - Uterine cervix, NOS B - Endocervical Procedures: Surgery Specimen Level IV HEADER OPERATION: Colposcopy PRE-OP DIAGNOSIS: K87.612, N87.0 TISSUE SUBMITTED: A ? Four quadrant cervical biopsy, B - ECC MICROSCOPIC DIAGNOSIS A. Cervix, four-quadrant biopsy: Focal changes consistent with HPV cytopathic effects. Chronic inflammation and squamous metaplasia. See comment. B. ECC: Scant fragments of squamous epithelium with focal minimal changes suspicious for HPV cytopathic effects. Fragments of benign endocervical mucosa with chronic inflammation. See comment. GABRIELA:yaz 12/02/2021 COMMENT A & B. Results from immunohistochemistry ([id number]) for surrogate HPV marker (p16) will be reported separately. MICROSCOPIC DESCRIPTION Slides are reviewed. GROSS DESCRIPTION A - Received in fixative is one container labeled with the patient's name and designated four-quadrant biopsy. The specimen consists of multiple irregular fragments of sanchez soft tissue mixed with mucoid tissue that in aggregate measure 1 x 1 x 0.1 cm. The specimen is totally submitted in one cassette. B - Received in fixative is one container labeled with the patient's name and designated ECC. The specimen consists of multiple fragments of hemorrhagic soft tissue that in aggregate measure 1.5 x 1 x 0.1 cm. The specimen is totally submitted in one cassette. / GABRIELA:yaz 11/29/2021 TC:5 CPT: 67578 x2
--- NOTE | 2021-11-28 | IMM_PTH ---
PATIENT: JJ MORA LOC: [facility] U#:[id number] AGE/SX: 26/F ROOM: RE11/28/[address]: Dr. Darren Goncalves MD : 1995 BED: DIS: 11/28/2021 SPEC #: [id number] RECD: 12/03/21 07:31 STATUS: LOLA REXavier #: [id number] MOIZ: 11/28/21 00:[address]: Darren Goncalves DEPT: IMMUNOHISTOCHEMISTRY RECD BY: Estrella Sagastume ENTERED: 12/03/21 07:31 SP TYPE: IMMUNO OTHR DR: Kimberley Gregg, BAUDILIO Tissues: A - Uterine cervix, NOS B - Endocervical Procedures: p16 (initial) KI-67 (add) PHYSICIAN & INSTITUTION [place] [id number] SPECIMEN INFORMATION: Tissue Source: A ? Four quadrant cervical biopsy, B - ECC Clinical Info: K87.612, N87.0 Specimen Number: [id number] A & B CPT code: 88255 x2, 31801 x2 METHODOLOGY: Deparaffinized sections of prefer/formalin-fixed tissue or PAP/DQ stained slides are incubated with monoclonal/polyclonal antibodies/oligonucleotide probes. Localization is made via biotin free immunoperoxidase method. Appropriate controls are performed and reacted as expected. Results on target cell population are indicated in the following table: RESULTS: ANTIBODY / CLONE RESULT Block A P16 (E6H4) positive, focal and patchy Ki-67 (30-9) positive, low Block B P16 (E6H4) negative Ki-67 (30-9) negative These tests were developed and their performance characteristics determined by [facility]. They may not have been cleared or approved by the U.S. Food and Drug Administration. The FDA has determined that such clearance or approval is not necessary. The above immunohistochemical/dualISH markers are ordered and reviewed by the Pathologist. INTERPRETATION: A. Four quadrant cervical biopsy: Focal changes consistent with HPV cytopathic effects. B. ECC: Focal minimal changes suspicious for HPV cytopathic effects. GABRIELA:yaz 12/03/2021
== END 2021-11-28 23:59 | disposition home or self-care (01) ==
LOC: LABSPEC 14:04
PROVIDERS: PCP Nurse Practitioner Family; Visit Provider Obstetrics & Gynecology
DX: N87.0 Mild cervical dysplasia (principal)
CPT/HCPCS: 88305; 88341; 88342

== ENCOUNTER 2024-04-23 12:00 | Outpatient (CLI) | payer OTHER, SELFPAY ==
[2024-04-23 12:13] VITALS: PULSE 77; RESP 16; TEMP 36.2; O2SAT 97
[2024-04-23 12:14] VITALS: BP 133/60; PULSE 74
[2024-04-23 12:15] VITALS: BMI 42.1
--- NOTE | 2024-04-23 15:24 | OB.TRI.NOTE ---
HPI - General HPI Narrative JJ MORA, is a 29 F 29w1d presnts for fall at home in bathtub. Fell and landed on her right side. Discomfort but no pain, vaginal bleeding, or leakage of fluid. No direct abdominal trauma PFSH PFSH Home Medications ?Medication ?Instructions ?Recorded ?Last Taken ?Type vits,calcium no.78-iron 1 tab PO DAILY 05/25/20 04/23/24 08:00 History fumarate-folic acid 29 mg-1 mg 1 TAB tablet Allergy/AdvReac Type Severity Reaction Status Date / Time No Known Allergies Allergy Verified 04/23/24 12:15 Social History Smoking Status: Never smoker History Elective abortions Hx Para 0 Spontaneous abortions Hx # Term Pregnancies Ectopic pregnancies Hx # Pregnancies Multiple births # of living children NST FHR Rate Baby A Baseline: 145 Variability:: Moderate Accelerations:: 15 x 15 Decelerations:: None NST Reactive:: Yes Uterine Activity:: None Assessment & Plan (1) 29 weeks gestation of : (2) Fall: PLAN: Plan 1) 4hrs of monitoring and reactive NST 2) No pain, contractions, vaginal bleeding or leakage of fluid 3) O negative, rhogam given at 28weeks in office 4) D/C home, kick counts
== END 2024-04-23 16:18 | disposition home or self-care (01) ==
LOC: WPOUT 12:07 → WP 12:08
PROVIDERS: PCP Nurse Practitioner Family; Visit Provider Advanced Practice Midwife
DX: Z04.3 Encounter for examination and observation following other accident (principal); W18.2XXA Fall in (into) shower or empty bathtub, initial encounter; Y92.002 Bathroom of unspecified non-institutional (private) residence as the place of occurrence of the external cause; Z3A.29 29 weeks gestation of pregnancy
CPT/HCPCS: 59025; 59050; 99221; G0378

== ENCOUNTER 2024-06-04 11:40 | Outpatient (CLI) | payer OTHER, SELFPAY ==
[2024-06-04 11:56] VITALS: BP 133/64; PULSE 70
[2024-06-04 12:00] VITALS: RESP 16
[2024-06-04 12:26] LABS: ROM Internal Control Test YES-OK TO RESULT pt. (Internal QC)
[2024-06-04 12:27] LABS: ROM Patient Test Negative (Negative); Record Kit Lot#, ROM+ K1866
--- NOTE | 2024-06-04 12:30 | OB.TRI.NOTE ---
HPI - General General Date of Admission: 06/04/24 Date of Service: 06/04/24 Chief Complaint: leaking fluid HPI Narrative JJ MORA, is a 29 F who presents Stood up last night and felt a gush of fluid last night. No bleeding. No leaking since. No contractions Maternal Data Information Final FÁTIMA: 07/08/24 Gestational age: 35+1 PFSH PFSH Home Medications ?Medication ?Instructions ?Recorded ?Last Taken ?Type vits,calcium no.78-iron 1 tab PO DAILY 05/25/20 04/23/24 08:00 History fumarate-folic acid 29 mg-1 mg 1 TAB tablet aspirin 81 mg tablet,delayed 81 mg PO DAILY 06/04/24 Unknown History release (Adult Aspirin Regimen) Allergy/AdvReac Type Severity Reaction Status Date / Time No Known Allergies Allergy Verified 06/04/24 12:00 Social History Smoking Status: Never smoker History Elective abortions Hx Para 0 Spontaneous abortions Hx # Term Pregnancies Ectopic pregnancies Hx # Pregnancies Multiple births # of living children NST FHR Rate Baby A Baseline: 140 Variability:: Moderate Accelerations:: 15 x 15 Decelerations:: None NST Reactive:: Yes FHR Category:: Category I Uterine Activity:: none Assessment & Plan (1) 35 weeks gestation of : (2) Encounter for suspected premature rupture of membranes, with rupture of membranes not found: PLAN: Plan ROM negative Cat I tracing. Follow up as scheduled
[2024-06-04 12:38] VITALS: BMI 43.4
== END 2024-06-04 12:35 | disposition home or self-care (01) ==
LOC: WPOUT 11:43 → WP 11:45
PROVIDERS: PCP Nurse Practitioner Family; Referring Provider Obstetrics & Gynecology; Visit Provider Obstetrics & Gynecology
DX: Z03.71 Encounter for suspected problem with amniotic cavity and membrane ruled out (principal); Z79.82 Long term (current) use of aspirin; Z3A.35 35 weeks gestation of pregnancy
CPT/HCPCS: 59025; 59050; 84112; 99221; G0378

== ENCOUNTER 2024-07-02 07:00 | Inpatient (IN) | payer OTHER, SELFPAY ==
[2024-07-02] VITALS (55 sets, daily range): BP systolic 98–151; BP diastolic 51–83; PULSE 60–121; RESP 14–20; TEMP 36.1–36.7; O2SAT 97–100; BMI 44.8
[2024-07-02 07:52] LABS: Absolute Lymphocyte Count 1.85 X10^3/uL (0.83-4.51); Absolute Neutrophil Count 8.1 X10^3/uL (2.0-7.7); Basophil# 0.02 X10^3/uL; Basophil% 0.2 % (0-1); Eosinophil# 0.06 X10^3/uL; Eosinophils% 0.6 % (0-5); Hematocrit 37.6 % (37-47); Hemoglobin 12.8 g/dL (12.0-15.0); Lymphocyte # 1.85 X10^3/ul (0.83-4.51); Lymphocyte % 17.2 % (19-41); Mean Corpuscular Hgb 30.9 pg (27.0-32.0); Mean Corpuscular Volume 90.8 fL (81-99); Monocyte# 0.71 X10^3/uL; Monocyte% 6.6 % (0-10); NRBC Flagged by Analyzer 0 % (0-5); Neutrophil # 8.05 X10^3/uL (2.7-7.7); Neutrophil % 74.8 % (47-70); Platelet Count 238 K/mm3 (150-450); RBC Distribution Width CV 14.3 % (11.6-14.6); RBC Distribution Width SD 46.7 fl (35.1-43.9); Red Blood Count 4.14 M/mm3 (4.2-5.4); White Blood Count 10.8 K/mm3 (4.4-11.0)
[2024-07-02] MEDS: Oxytocin 15 Units/NS 250ml 15 UNITS/250 ML IV.SOLN 2 UNITS IV (08:08)
[2024-07-02] MEDS: Lactated Ringers 1,000 ML 50 ML IV (08:08)
[2024-07-02 10:16] LABS: Syphilis Antibodies Non-reactive
--- NOTE | 2024-07-02 10:39 | HP.PCM.OB_ITS ---
HPI - General General Date of Admission: 07/02/24 Date of Service: 07/02/24 Chief Complaint: Induction HPI Narrative JJ MORA, is a 29 F who presents pitocin induction of labor for BMI Maternal Data Information Final FÁTIMA: 07/08/24 Gestational age: 39+1 PFSH [facility] Medical History (Updated 07/02/24 @ 10:[address] Valencia Quinones MD) Molar Asthma Anxiety Home Medications ?Medication ?Instructions ?Recorded ?Last Taken ?Type vits,calcium no.78-iron 1 tab PO DAILY 05/25/20 07/01/24 10:00 History fumarate-folic acid 29 mg-1 mg tablet aspirin 81 mg tablet,delayed 81 mg PO DAILY 06/04/24 Unknown History release (Adult Aspirin Regimen) Allergy/AdvReac Type Severity Reaction Status Date / Time No Known Allergies Allergy Verified 07/02/24 07:26 Social History Smoking Status: Never smoker History Elective abortions Hx Para 1 Spontaneous abortions Hx # Term Pregnancies Ectopic pregnancies Hx # Pregnancies Multiple births # of living children NST FHR Rate Baby A Baseline: 135 Variability:: Moderate Accelerations:: 15 x 15 Decelerations:: None NST Reactive:: Yes FHR Category:: Category I Uterine Activity:: irregular ROS Constitutional Constitutional: Denies fatigue, fever(s) or malaise Eyes Eyes: Denies change in vision ENT HEENT: Denies dizziness or headache(s) Cardiovascular Cardiovascular: Denies chest pain, dyspnea or lightheadedness Respiratory/Chest Respiratory/Chest: Denies cough or dyspnea Gastrointestinal Gastrointestinal: Denies change in bowel habits Genitourinary Genitourinary: Denies burning urination or genital lesions Integumentary Integumentary: Denies rash Neurologic Neurologic: Denies confusion, dizziness, headache(s), numbness or weakness Vital Signs Vital Signs Vital Signs: 07/02/24 07:55 07/02/24 07:55 07/02/24 07:55 Temperature Temperature Source Temporal Pulse Rate 71 Respiratory Rate Blood Pressure 132/70 H BP Systolic 132 BP Diastolic 70 Pulse Ox 07/02/24 07:55 07/02/24 07:55 07/02/24 07:55 Temperature Temperature Source Pulse Rate 71 Respiratory Rate 18 Blood Pressure 132/70 H BP Systolic 132 BP Diastolic 70 Pulse Ox 07/02/24 07:55 07/02/24 07:55 07/02/24 07:55 Temperature 97.7 F L Temperature Source Temporal Pulse Rate Respiratory Rate Blood Pressure BP Systolic BP Diastolic Pulse Ox 98 07/02/24 07:55 07/02/24 07:55 07/02/24 07:55 Temperature Temperature Source Pulse Rate 71 Respiratory Rate 18 Blood Pressure 132/70 H BP Systolic 132 BP Diastolic 70 Pulse Ox 07/02/24 07:55 07/02/24 07:55 07/02/24 08:59 Temperature 97.7 F L Temperature Source Pulse Rate Respiratory Rate Blood Pressure 124/60 H BP Systolic 124 BP Diastolic 60 Pulse Ox 98 07/02/24 08:59 07/02/24 10:15 07/02/24 10:15 Temperature Temperature Source Pulse Rate 93 78 Respiratory Rate Blood Pressure 128/72 H BP Systolic 128 BP Diastolic 72 Pulse Ox Weight Weight: 133.81 kg Body Mass Index (BMI) 44.8 Physical Exam Const alert and no apparent distress General Appearance: cooperative HEENT normocephalic Resp normal respiratory effort Cardio regular rate GI soft to palpation GI Narrative: gravid, nontender, appropriate for gestational age Extremity no calf tenderness General Extremity: edema Skin no wounds Rashes: No rashes noted Psych activity/motor behavior normal Labs Labs Labs: Blood Type O NEGATIVE Antibody Screen NEGATIVE Hct 37.6 % (37-47) Hgb 12.8 g/dL (12.0-15.0) Syphilis Total Ab Non-reactive Rubella IgG Antibody 16.3 IU/mL Hep Bs Antigen Non-Reactive (Nonreactive) Hepatitis C Antibody Non-Reactive (Nonreactive) Chlamydia DNA (KULWINDER) Negative (Negative) N.gonorrhoeae DNA (KULWINDER) Negative (Negative) HIV 1&2 Antibody Non-Reactive (Nonreactive) Glucose 1 Hr 50 gm 82 mg/dL (70-140) Rhogam given: Yes Assessment & Plan (1) Elective induction of labor planned: (2) 39 weeks gestation of : PLAN: Plan Pitocin AROM prn Epidural prn
[2024-07-02] MEDS: Lactated Ringers 1,000 ML 999 ML IV (14:21)
[2024-07-02] MEDS: fentaNYL-bupivacaine (epidural) 100 ML BAG EPIDURAL ×2 (15:45→20:29)
[2024-07-02] MEDS: LACTATED RINGERS 500 ML 999 ML IV ×2 (17:33→21:40)
[2024-07-02] MEDS: Lactated Ringers 1,000 ML 200 ML IV (17:46)
--- NOTE | 2024-07-02 18:18 | PCM.PN.OB ---
Subjective Subjective AROM for clear fluid. IUPC placed without difficulty. Epidural in place and working well. Objective Data Objective Data Vital Signs: Vital Signs Temp Pulse Resp BP Pulse Ox 97.0 F L 80 16 108/54 L 100 07/02/24 17:20 07/02/24 18:10 07/02/24 17:20 07/02/24 18:10 07/02/24 17:35 Weight: 133.81 kg Body Mass Index (BMI) 44.8 Intake & Output: Intake and Output for Last 24 Hours 06/30/24 07/01/24 07/02/24 23:59 23:59 23:59 Intake Total 1885.73 / 1885.73 Balance 1885.73 / 1885.73 Lab / Micro Data 07/02/24 07:36 Labs: Laboratory Results - last 24 hr 07/02/24 07:36: WBC 10.8, RBC 4.14 L, Hgb 12.8, Hct 37.6, MCV 90.8, MCH 30.9, MCHC 34.0, RDW Std Deviation 46.7 H, RDW Coeff of Adela 14.3, Plt Count 238, MPV 10.0, Immature Gran % (Auto) 0.600, Neut % (Auto) 74.8 H, Lymph % (Auto) 17.2 L, Sharkey % (Auto) 6.6, Eos % (Auto) 0.6, Baso % (Auto) 0.2, Absolute Neuts (auto) 8.1 H, Absolute Lymphs (auto) 1.85, Nucleated RBC % 0, Syphilis Total Ab Non-reactive, Blood Type O NEGATIVE, Antibody Screen NEGATIVE NST FHR Rate Baby A Baseline: 130 Variability:: Moderate Accelerations:: 15 x 15 Decelerations:: None NST Reactive:: Yes FHR Category:: Category I Uterine Activity:: q 5 Assessment & Plan (1) 39 weeks gestation of : (2) Elective induction of labor planned: PLAN: Plan Pitocin induction Epidural in AROM
[2024-07-02] MEDS: Ondansetron 4 MG/2 ML Vial IV (21:32)
[2024-07-03] VITALS (38 sets, daily range): BP systolic 102–160; BP diastolic 50–108; PULSE 53–153; RESP 14–20; TEMP 35.9–37.3; O2SAT 83–100
[2024-07-03] MEDS: Lactated Ringers 1,000 ML 200 ML IV ×3 (00:17→11:02)
[2024-07-03] MEDS: fentaNYL-bupivacaine (epidural) 100 ML BAG EPIDURAL ×3 (00:58→11:24)
[2024-07-03] MEDS: LACTATED RINGERS 500 ML 999 ML IV (03:55)
--- NOTE | 2024-07-03 10:51 | PCM.PN.OB ---
Subjective Subjective Started pushing after complete but did not feel the urge and fetus was not tolerating positioning. BP was also low. IVF bolus given and patient repositioned and allowed to rest. She began pushing again after an hour. Fetus has better tolerated pushing. She does make some progress but ROP positioning. Vertex able to be positioned to OP. Patient continues to push but is tired. Discussed possible vacuum attempt. Reviewed R/B/A. Patient would prefer to try vacuum before c/s. She wants avoid a c/s. Discussed failed vacuum would mean a c/s. After pushing for 3 hours patient does want a vacuum. Anesthesia on the floor but just started an epidural. Plan to wait until anesthesia is readily available before attempting a vacuum. Patient would like to rest while waiting. Objective Data Objective Data Vital Signs: Vital Signs Temp Pulse Resp BP Pulse Ox 97.8 F 65 18 113/55 L 96 07/03/24 10:39 07/03/24 10:40 07/03/24 10:39 07/03/24 10:40 07/03/24 05:02 Weight: 133.81 kg Body Mass Index (BMI) 44.8 Intake & Output: Intake and Output for Last 24 Hours 07/01/24 07/02/24 07/03/24 23:59 23:59 23:59 Intake Total 4789.05 / 4789.05 1056.37 / 1056.37 Output Total 1300 / 1300 Balance 3489.05 / 3489.05 1056.37 / 1056.37 Lab / Micro Data 07/02/24 07:36 Assessment & Plan (1) 39 weeks gestation of : (2) Elective induction of labor planned: PLAN: Plan Plan to attempt vacuum when anesthesia available and c/s is not successful
[2024-07-03] MEDS: Oxytocin 15 Units/NS 250ml 15 UNITS/250 ML IV.SOLN 83 UNITS IV (12:49)
--- NOTE | 2024-07-03 13:40 | OP.PCM_ITS ---
Assessment & Plan (1) Vacuum-assisted vaginal delivery: Maternal Data Information Final FÁTIMA: 07/08/24 Gestational age: 39+2 Vaginal Delivery Maternal Presentation Maternal Presentation: Medically Indicated Induction Maternal Presentation: IOL for maternal obesity Type of Induction: Pitocin and Amniotomy Operative Information Date of Procedure: 07/03/24 Pre-Operative Diagnosis: induction of labor at term Post-Operative Diagnosis: Same Surgery / Procedure Performed: Vacuum Assisted Vaginal Delivery (Pulled through 3 contractions with good descent . No pop-offs) Type of Anesthesia: Epidural Drain: Jeronimo to straight drain Estimated Blood Loss: 100 cc Time of Delivery: 12:17 Findings Description of Procedure: Patient progressed to complete and started pushing after complete but did not feel the urge and fetus was not tolerating positioning. BP was also low. IVF bolus given and patient repositioned and allowed to rest. She began pushing again after an hour. Fetus has better tolerated pushing. She did make some progress but ROP positioning. Vertex able to be positioned to OP. Patient continues to push but is tired. Discussed possible vacuum attempt. Reviewed R/B/A. Patient would prefer to try vacuum before c/s. She wants avoid a c/s. Di scussed failed vacuum would mean a c/s. After pushing for 3 hours patient does want a vacuum. Jeronimo remained intact. Epidural dosed. Vacuum placed. Pulled through 3 contractions with good descent. No pop-offs. Vertex +3 after vacuum pulls. Patient continued to push with good effort and delivered OA followed quickly by the shoulders. Baby cried immediately. The infant was placed on the maternal abdomen. The cord was clamped and cut. Cord blood was collected. The placenta delivered with gentle traction. A second degree laceration was repaired with 2-0 Vicryl. Presentation: Vertex and CAMRYN Amniotic Membrane Rupture Type: Artificial Amniotic Fluid Description: Clear Placental Delivery Description: Spontaneous Placenta Disposition: [facility] Cord Vessel Description: 3 Vessels Cord Entanglement: None A Gender: Male (1 minute): 8 (5 minute): 9 Delayed Cord Clamping: Yes Post Vaginal Delivery Medications Given After Delivery: IV Pitocin Episiotomy Description: None Laceration: Midline and 2nd degree Complication Complications: None
[2024-07-03] MEDS: Ibuprofen 600 MG Tablet PO (21:10)
[2024-07-03] MEDS: Acetaminophen 500 MG Tablet 1000 MG PO (23:56)
[2024-07-04 04:04] VITALS: BP 124/60; PULSE 57
[2024-07-04 04:08] VITALS: BP 124/60; PULSE 57; RESP 16; TEMP 36.6
--- NOTE | 2024-07-04 06:15 | PCM.PN.OB ---
Subjective Subjective Feels good. Mild lochia. Voiding and ambulating without difficulty. Breast feeding Objective Data Objective Data Vital Signs: Vital Signs Temp Pulse Resp BP Pulse Ox O2 Del Method 97.9 F 57 L 16 124/60 H 97 Room Air 07/04/24 04:08 07/04/24 04:08 07/04/24 04:08 07/04/24 04:08 07/03/24 23:55 07/03/24 23:55 Oxygen Delivery Method Room Air Weight: 133.81 kg Body Mass Index (BMI) 44.8 Intake & Output: Intake and Output for Last 24 Hours 07/02/24 07/03/24 07/04/24 23:59 23:59 23:59 Intake Total 4789.05 / 4789.05 3229.29 / 3229.29 Output Total 1300 / 1300 300 / 300 Balance 3489.05 / 3489.05 2929.29 / 2929.29 Lab / Micro Data 07/02/24 07:36 ROS Constitutional Constitutional: Denies fatigue, fever(s) or malaise Eyes Eyes: Denies change in vision ENT HEENT: Denies dizziness or headache(s) Cardiovascular Cardiovascular: Denies chest pain, dyspnea or lightheadedness Respiratory/Chest Respiratory/Chest: Denies cough or dyspnea Gastrointestinal Gastrointestinal: Denies change in bowel habits Genitourinary Genitourinary: Denies burning urination or genital lesions Integumentary Integumentary: Denies rash Neurologic Neurologic: Denies confusion, dizziness, headache(s), numbness or weakness Physical Exam Const alert and no apparent distress Narrative: Fundus firm, below umbilicus. Assessment & Plan (1) Vacuum-assisted vaginal delivery: (2) 39 weeks gestation of : PLAN: Plan Routine care
[2024-07-04 07:52] VITALS: BP 129/71; PULSE 69
[2024-07-04 08:18] VITALS: BP 129/71; PULSE 69; RESP 16; TEMP 36.2
--- NOTE | 2024-07-04 13:23 | PCM.DC.SUM ---
Providers Date of Admission: 07/02/24 Primary Care Physician: BAUDILIO Shannon Reason For Visit: VAG DELIVERY Diagnosis Discharge Diagnosis (1) Vacuum-assisted vaginal delivery: Status: Acute Code(s): Z37.9 - Outcome of delivery, unspecified (2) 39 weeks gestation of : Status: Acute Code(s): Z3A.39 - 39 weeks gestation of Medications at Discharge Home Medications vits,calcium no.78-iron fumarate-folic acid 29 mg-1 mg tablet 1 tab PO DAILY 05/25/20 aspirin 81 mg tablet,delayed release (Adult Aspirin Regimen) 81 mg PO DAILY 06/04/24 acetaminophen 500 mg tablet 1,000 mg (2 x 500 mg) PO Q6H PRN PRN Pain 1-10 Or Fever #0 tabs 07/04/24 ibuprofen 600 mg tablet 600 mg PO Q6H PRN PRN Pain Score 1-10 #0 tabs 07/04/24 Weight / BMI Weight Weight: 295 lb Body Mass Index (BMI) 44.8 ABG / Lab / Microbiology Data 07/02/24 07:36 D/C Instructions Discharge Diet: No restrictions Discharge Activity: Return to Normal Activity, May Drive, May Shower and May Take a Tub Bath May resume sexual activity in: 6 weeks Weight Bearing Status: Full weight bearing Call your doctor if you observe: Fever of 101 or Higher, Inability to urinate, Using more than 1 pad per hour, Shortness of breath, Chest pain, Increased palpitations (irregular heartbeat), Calf discomfort and Uncontrolled pain Please Follow Up With: Morelia Sargent CNM When: 2 week virtual visit and 6 week visit Meaningful Use Info Meaningful Use Meaningful Use Diagnoses (Choose all that apply): None applicable Ischemic Stroke Statin Dosing Therapy Reference: STATIN DOSE THERAPY REFERENCE: * Patients > 75 years receive moderate or high dose statin therapy. * Patients 75 years or YOUNGER should receive HIGH intensity statin dose unless contraindicated. You will be required to document reason for non-treatment if statin daily dose does not meet guidelines. HIGH DOSE STATIN THERAPY DAILY Atorvastatin > than or = to 40 mg Rosuvastatin > than or = to 20 mg Amlodipine + Atorvastatin > than or = to 2.5/40 mg Ezetimibe + Simvastatin 10/80 mg Simvastatin 80mg Discharge Plan Admission Admit Date/Time: 07/02/24 07:00 Primary Reason for Your Visit: Vaginal Delivery Attending Provider: Valencia Quinones Primary Care Provider: Kimberley Gregg NP Discharge Orders/Prescriptions Prescriptions: New acetaminophen 500 mg Tablet 1,000 mg PO Q6H PRN PRN (Reason: Pain 1-10 Or Fever) Qty: 0 0RF ibuprofen 600 mg Tablet 600 mg PO Q6H PRN PRN (Reason: Pain Score 1-10) Qty: 0 0RF No Action vit,[id number] 1 TABLET tablet 1 tab PO DAILY aspirin [Adult Aspirin Regimen] 81 mg tablet,delayed release (DR/EC) 81 mg PO DAILY Referrals / Follow Up: Valencia Quinones MD [Med Staff - Active Staff] - (2 week and 6 week) Kimberley Gregg NP, DIRECTOR OF SECURITY-C [Primary Care Provider] - Disposition Disposition (needs filled in before D/C Order can be placed): Home, Self Care
[2024-07-04] MEDS: MEASLES,MUMPS,RUBELLA VACC/PF 0.5 ML SC (14:16)
[2024-07-04 15:40] VITALS: BP 137/71; PULSE 86; RESP 16; TEMP 36.1
--- NOTE | 2024-07-05 14:07 | CASEMGMT ---
Social Work Assessment Labor and Delivery Unit Patient Address: [address] [place] [address] [address] [place] [address] Phone number: [phone] Date of Referral: 07/03/24 Time of Referral:? 1827 Referred By: Dr. Huddleston Date of Intervention: ?07/04/24? Time of Intervention:? 1400 Reason for Referral:? history of anxiety Sw completed chart review and acknowledges social work consult due to maternal mental health history. Sw presented to bedside and introduced self to mother of baby (DAYTON- Jarrett) and father of baby (FOB- Kenyamichael). Sw explained reason for sw involvement and completed psychosocial assessment. History obtained from: medical records, MOB and FOB. Household composition: Currently residing in the family home is BRANDON BURRIS, and their 4 year old daughter, Imelda. [place] baby to be added to household when ready for discharge. Parents deny any issues or concerns with housing at this time. Patient's parent/guardian status:? ?DAYTON states that she and BRANDON have been together for 7 years after meeting in college. No concerning reports of domestic violence or intimate partner violence. Medical History: ?DAYTON is 29 year old female who is 3, para 1- now 2 following labor and delivery of . DAYTON received routine care during with [facility]. DAYTON presented to hospital and delivered baby via vaginal delivery on 07/03/24. Baby boy, named Cynthia, was born at 40 weeks gestation weighing 8lb 17oz with apgars of 8 and 9 at one and five minutes of life, respectfully. DAYTON states that she is breast feeding and it is going well. Baby will be followed by Dr. Bhandari for pediatrics. Educational Status:?Both parents graduated from high school and have obtained Bachelor's degrees. No issues with reading, learning or comprehension. Financial Status: Both parents are gainfully employed outside of the home at [employer]. DAYTON is able to take 6 weeks off of work. Supplies: Parents have obtained all necessary baby supplies, including: car seat, safe sleep space, clothes, diapers and wipes. Childcare/Caregiver(s):? DAYTON and BRANDON will be the primary caregivers to baby, along with maternal grandma and great grandma when parents are working. Transportation:?? Both parents have their drivers license and reliable means of transportation. No barriers at this time. Programs/Agencies Involved: ???Parents are not connected to any community resources that assist them financially at this time. Children Services/Legal Issues:??? No prior involvement with children services, no issues or concerns warranting referral to be made at this time. Behavioral Health Issues: ??Mental Health History:??FOB denies mental health history. MOB states that she has been diagnosed with anxiety and is not prescribed any medications at this time. MOB denies experiencing any mood and anxiety disorders after the delivery of her daughter. ? Substance Use History:Parents deny substance use prior to or during . ?? Family History:??Parents deny family history of addiction/ substance use or significant mental health diagnoses. ?? Drug Screens: No drug screens observed in chart review. Family/Social Stressors:? Parents deny any issues, concerns or stressors at this time. Support Systems: MOB identifies that maternal grandma, her siblings and paternal grandparents are her biggest supports at this time. Depression/Shaken Baby/Safe Sleeping: Sw educated parents on signs and symptoms of baby blues and mood and anxiety disorders. Parents express understanding. FOB states that he would be able to recognize if MOB were struggling with her mental health and would know how to help and support her. Sw educated parents on shaken baby prevention and ABCs of safe sleep. Parents express understanding. ASSESSMENT:? MOB and baby admitted following labor and delivery. MOB and FOB both present and participated actively in completion of psychosocial assessment. MOB with mental health history and aware of signs and symptoms of baby blues and mood and anxiety disorders to be on the lookout for. Parents have obtained all necessary baby supplies and have natural supports in place. Safe Plan of Care for infant related to substance use:? PLAN:? No other services requested or indicated. MOB and baby to be discharged when medically ready. Parents were provided literature regarding: signs and symptoms of baby blues and mood and anxiety disorders, Help Me Grow, shaken baby prevention, ABCs of safe sleep and a list of county resources that are available for them should any needs present themselves. Gladys Roberson, [employer], COMPLAINT EVALUATION SUPERVISOR
== END 2024-07-04 16:30 | disposition home or self-care (01) | DRG 807 ==
PROVIDERS: Admitting Provider Obstetrics & Gynecology; PCP Nurse Practitioner Family; Visit Provider Obstetrics & Gynecology
DX: O99.214 Obesity complicating childbirth (principal); Z37.0 Single live birth; O99.892 Other specified diseases and conditions complicating childbirth; R03.1 Nonspecific low blood-pressure reading; O70.1 Second degree perineal laceration during delivery; Z3A.39 39 weeks gestation of pregnancy; Z79.82 Long term (current) use of aspirin
CPT/HCPCS: 59025; 59050; 85025; 86780; 86850; 86900; 86901; 99221; J7120; G0378; J2405